=== PATIENT | female | born 1975 | race Caucasian/White ===

== ENCOUNTER 2022-08-06 08:09 | Emergency (ER) | payer BC, OTHER ==
[2022-08-06 08:40] VITALS: BP 136/85; PULSE 98; RESP 18; TEMP 98.5; BMI 36.6
[2022-08-06] MEDS ORDERED: predniSONE 20 MG TABLET (UD) PO ONE (09:24)
[2022-08-06] MEDS ORDERED: ALBUTEROL SO4 2.5/IPRATROPIUM 0.5 INH SOL 3 ML VIAL.NEB. NEB ONE ×2 (09:24→10:21)
== END 2022-08-06 11:45 | disposition home or self-care (01) ==
LOC: JER 08:09
PROC: 3E0F7GC Introduction of Other Therapeutic Substance into Respiratory Tract, Via Natural or Artificial Opening (ICD-10-PCS; principal; 2022-08-06)
DX: J45.909 Unspecified asthma, uncomplicated (principal); R05.9 Cough, unspecified
CPT/HCPCS: 0241U-QW; 99283-25

== ENCOUNTER 2022-09-20 14:47 | Day surgery (SDC) | payer BC, OTHER ==
[2022-09-20] MEDS ORDERED: FERRIC CARBOXYMALTOSE 750 MG in SODIUM CHLORIDE 250 ML IVPB ONE (15:30)
[2022-09-20 17:28] VITALS: BP 120/72; PULSE 64; RESP 17; TEMP 98.2
== END 2022-09-20 17:28 | disposition home or self-care (01) ==
LOC: FINFUSION 14:47 → FM/S 14:48 → FINFUSION 17:28
PROVIDERS: ATTEND Family Medicine
PROC: 3E033GC Introduction of Other Therapeutic Substance into Peripheral Vein, Percutaneous Approach (ICD-10-PCS; principal; 2022-09-20)
DX: D50.9 Iron deficiency anemia, unspecified (principal)
CPT/HCPCS: 96365; J1439

== ENCOUNTER 2022-09-28 10:46 | Day surgery (SDC) | payer BC, OTHER ==
[2022-09-28 11:07] VITALS: RESP 18; TEMP 98.2
[2022-09-28] MEDS ORDERED: FERRIC CARBOXYMALTOSE 750 MG in SODIUM CHLORIDE 250 ML IVPB SCH (11:15)
[2022-09-28 13:19] VITALS: BP 108/62; PULSE 84
== END 2022-09-28 13:22 | disposition home or self-care (01) ==
LOC: FINFUSION 10:46 → FM/S 10:50 → FINFUSION 13:22
PROVIDERS: ATTEND Family Medicine
PROC: 3E033GC Introduction of Other Therapeutic Substance into Peripheral Vein, Percutaneous Approach (ICD-10-PCS; principal; 2022-09-28)
DX: D50.9 Iron deficiency anemia, unspecified (principal)
CPT/HCPCS: 81025; 96365; J1439

== ENCOUNTER 2023-01-15 18:44 | Emergency (ER) | payer BC, OTHER ==
[2023-01-15 19:14] VITALS: RESP 18; BMI 36.3
[2023-01-15] MEDS ORDERED: ACETAMINOPHEN 1000 MG/100 ML BAG IVPB ONE (22:14)
[2023-01-15 22:17] LABS: BASO % 1.2 % (0-2.0); EOS % 1.7 % (0-4.5); HEMATOCRIT 38.5 % (32.4-45.2); HEMOGLOBIN 12.9 GM/dL (10.7-15.3); LYMPH % 45.6 % (8-40); MCH 32.6 pg (25.7-33.7); MCHC 33.6 g/dl (32.0-36.0); MEAN CELL VOLUME 97.1 fl (80-96); MEAN PLT VOLUME 11.3 fl (7.5-11.1); MONO % 6.7 % (3.8-10.2); NEUT % 44.8 % (42.8-82.8); PLATELET COUNT 202 10^3/uL (134-434); RBC 3.96 M/mm3 (3.60-5.2); WHITE BLOOD COUNT 5.9 K/mm3 (4.0-10.0)
[2023-01-15] MEDS ORDERED: ACETAMINOPHEN INJECTION 100 ML IVPB ONE (22:20)
[2023-01-15 22:36] LABS: CALCIUM 9.3 mg/dL (8.5-10.1)
[2023-01-15 22:40] LABS: CREATININE 0.7 mg/dL (0.55-1.3)
[2023-01-15 22:47] LABS: BLOOD UREA NITROGEN 15.9 mg/dL (7-18)
[2023-01-16 02:26] VITALS: BP 114/65; PULSE 76; TEMP 99
== END 2023-01-16 02:34 | disposition home or self-care (01) ==
LOC: JER 18:44
PROC: 3E033NZ Introduction of Analgesics, Hypnotics, Sedatives into Peripheral Vein, Percutaneous Approach (ICD-10-PCS; principal; 2023-01-15)
DX: M54.2 Cervicalgia (principal); R59.0 Localized enlarged lymph nodes
CPT/HCPCS: 36415; 70491-TC; 80048; 85025; 86308; 99285-25

== ENCOUNTER 2023-09-18 04:46 | Emergency (ER) | payer BC, OTHER ==
[2023-09-18 04:56] VITALS: BP 142/87; PULSE 100; RESP 26; TEMP 98.6; BMI 40.2
[2023-09-18] MEDS ORDERED: DEXAMETHASONE SOD PHOSPHATE 10 MG/1 ML VIAL IVPUSH ONE (05:05)
[2023-09-18] MEDS ORDERED: methylPREDNISolone NA SUCC 125 MG/2 ML VIAL IVPUSH ONE (05:07)
[2023-09-18] MEDS: ALBUTEROL SO4 2.5/IPRATROPIUM 0.5 INH SOL 3 ML VIAL.NEB. NEB SCH ×3 (05:07→05:51)
[2023-09-18] MEDS ORDERED: MAGNESIUM 1GM/D5W - 1 GM/100 ML IVPB IVPB ONE (05:21)
[2023-09-18] MEDS ORDERED: methylPREDNISolone NA SUCC 125 MG/2 ML VIAL ONE (05:21)
[2023-09-18 05:48] LABS: BASO % 0.5 % (0-2.0); EOS % 1.7 % (0-4.5); HEMATOCRIT 36.7 % (32.4-45.2); HEMOGLOBIN 12.1 GM/dL (10.7-15.3); LYMPH % 35.9 % (8-40); MCH 31.4 pg (25.7-33.7); MEAN CELL VOLUME 95.2 fl (80-96); MEAN PLT VOLUME 10.5 fl (7.5-11.1); MONO % 8.3 % (3.8-10.2); NEUT % 53.6 % (42.8-82.8); PLATELET COUNT 212 10^3/uL (134-434); RBC 3.85 M/mm3 (3.60-5.2); RDW 13.1 % (11.6-15.6); WHITE BLOOD COUNT 5.2 K/mm3 (4.0-10.0)
[2023-09-18 05:51] LABS: INR 0.95 (0.83-1.09)
[2023-09-18 05:53] LABS: ACTIVATED PTT 25.5 SECONDS (25.2-36.5)
[2023-09-18 06:06] LABS: POTASSIUM 3.8 mmol/L (3.5-5.1)
[2023-09-18 06:08] LABS: ALBUMIN 3.5 g/dl (3.4-5.0); CALCIUM 8.9 mg/dL (8.5-10.1)
[2023-09-18 06:09] LABS: BLOOD UREA NITROGEN 12.7 mg/dL (7-18)
[2023-09-18 06:11] LABS: CREATININE 0.7 mg/dL (0.55-1.3)
[2023-09-18 06:13] LABS: BILIRUBIN,TOTAL 0.2 mg/dL (0.2-1); TOT PROT 6.4 g/dl (6.4-8.2)
== END 2023-09-18 07:35 | disposition home or self-care (01) ==
LOC: JER 04:46
PROC: 3E033GC Introduction of Other Therapeutic Substance into Peripheral Vein, Percutaneous Approach (ICD-10-PCS; principal; 2023-09-18)
PROC: 3E033GC Introduction of Other Therapeutic Substance into Peripheral Vein, Percutaneous Approach (ICD-10-PCS; 2023-09-18)
PROC: 3E033GC Introduction of Other Therapeutic Substance into Peripheral Vein, Percutaneous Approach (ICD-10-PCS; 2023-09-18)
DX: R06.02 Shortness of breath (principal); J45.21 Mild intermittent asthma with (acute) exacerbation; M62.838 Other muscle spasm; R05.9 Cough, unspecified; Z20.822 Contact with and (suspected) exposure to COVID-19
CPT/HCPCS: 0241U-QW; 36415; 71045-TC-FY; 80053; 82550; 82553; 83735; 84484; 84703; 85025; 85610; 85730; 93005; 93010; 99285-25

== ENCOUNTER 2024-05-01 11:47 | Day surgery (SDC) | payer BC, OTHER ==
[2024-05-01] MEDS: FERRIC CARBOXYMALTOSE 750 MG in SODIUM CHLORIDE 250 ML IVPB SCH (12:29)
[2024-05-01 14:41] VITALS: BP 120/56; PULSE 75; RESP 18; TEMP 98.5
== END 2024-05-01 13:35 | disposition home or self-care (01) ==
LOC: FINFUSION 11:47 → FM/S 11:48 → FINFUSION 13:35
PROVIDERS: ATTEND Family Medicine
PROC: 3E033GC Introduction of Other Therapeutic Substance into Peripheral Vein, Percutaneous Approach (ICD-10-PCS; principal; 2024-05-01)
DX: D50.9 Iron deficiency anemia, unspecified (principal)
CPT/HCPCS: 96365; J1439

== ENCOUNTER 2024-05-08 11:51 | Day surgery (SDC) | payer BC, OTHER ==
[2024-05-08] MEDS: FERRIC CARBOXYMALTOSE 750 MG in SODIUM CHLORIDE 250 ML IVPB SCH (12:50)
[2024-05-08 13:35] VITALS: BP 112/57; PULSE 82; RESP 17; TEMP 98.6
== END 2024-05-08 13:36 | disposition home or self-care (01) ==
LOC: FINFUSION 11:51 → FM/S 11:51 → FINFUSION 13:36
PROVIDERS: ATTEND Family Medicine
PROC: 3E033GC Introduction of Other Therapeutic Substance into Peripheral Vein, Percutaneous Approach (ICD-10-PCS; principal; 2024-05-08)
DX: D50.9 Iron deficiency anemia, unspecified (principal)
CPT/HCPCS: 81025; 96365; J1439

== ENCOUNTER 2024-12-17 10:00 | Day surgery (SDC) | payer BC, OTHER ==
[2024-12-17] MEDS: IRON SUCROSE INJECTION 200 MG in SODIUM CHLORIDE 100 ML IVPB ONE (10:14)
[2024-12-17] MEDS: CYANOCOBALAMIN (VITAMIN B-12) 1000 MCG/1 ML VIAL IM ONE (10:15)
[2024-12-17 14:28] VITALS: RESP 16; TEMP 97.7
[2024-12-17 14:31] VITALS: BP 121/77; PULSE 83
== END 2024-12-17 11:15 | disposition home or self-care (01) ==
LOC: JONCCHEMO 10:00 → J7W 10:27 → JONCCHEMO 11:15
PROVIDERS: ATTEND Internal Medicine Hematology & Oncology
PROC: 3E033GC Introduction of Other Therapeutic Substance into Peripheral Vein, Percutaneous Approach (ICD-10-PCS; principal; 2024-12-17)
PROC: 3E023GC Introduction of Other Therapeutic Substance into Muscle, Percutaneous Approach (ICD-10-PCS; 2024-12-17)
DX: D64.9 Anemia, unspecified (principal); E61.1 Iron deficiency; D51.9 Vitamin B12 deficiency anemia, unspecified
CPT/HCPCS: 96365; 96372; J1756

== ENCOUNTER 2025-01-21 09:00 | Day surgery (SDC) | payer BC, OTHER ==
[2025-01-21 09:49] VITALS: RESP 18; TEMP 98.8
[2025-01-21] MEDS: IRON SUCROSE INJECTION 200 MG in SODIUM CHLORIDE 100 ML IVPB ONE (10:21)
[2025-01-21 11:09] VITALS: BP 106/56; PULSE 79
== END 2025-01-21 11:20 | disposition home or self-care (01) ==
LOC: JONCCHEMO 09:00 → J7W 09:00 → JONCCHEMO 11:20
PROVIDERS: ATTEND Internal Medicine Hematology & Oncology
PROC: 3E033GC Introduction of Other Therapeutic Substance into Peripheral Vein, Percutaneous Approach (ICD-10-PCS; principal; 2025-01-21)
DX: D50.9 Iron deficiency anemia, unspecified (principal)
CPT/HCPCS: 96365; J1756

== ENCOUNTER 2025-01-28 09:22 | Day surgery (SDC) | payer BC, OTHER ==
[2025-01-28] MEDS: IRON SUCROSE INJECTION 200 MG in SODIUM CHLORIDE 100 ML IVPB ONE (09:53)
[2025-01-28 14:24] VITALS: RESP 20; TEMP 98.2
[2025-01-28 14:32] VITALS: BP 113/82; PULSE 71
== END 2025-01-28 11:00 | disposition home or self-care (01) ==
LOC: JONCNONCHE 09:22
PROVIDERS: ATTEND Internal Medicine Hematology & Oncology
PROC: 3E033GC Introduction of Other Therapeutic Substance into Peripheral Vein, Percutaneous Approach (ICD-10-PCS; principal; 2025-01-28)
DX: E61.1 Iron deficiency (principal); D51.9 Vitamin B12 deficiency anemia, unspecified
CPT/HCPCS: 96365; J1756

== ENCOUNTER 2025-02-04 09:10 | Day surgery (SDC) | payer BC, OTHER ==
[2025-02-04] MEDS: IRON SUCROSE INJECTION 200 MG in SODIUM CHLORIDE 100 ML IVPB ONE (09:28)
[2025-02-04 13:59] VITALS: BP 101/56; PULSE 79; RESP 18; TEMP 97.7
== END 2025-02-04 10:20 | disposition home or self-care (01) ==
LOC: JONCNONCHE 09:10
PROVIDERS: ATTEND Internal Medicine Hematology & Oncology
PROC: 3E033GC Introduction of Other Therapeutic Substance into Peripheral Vein, Percutaneous Approach (ICD-10-PCS; principal; 2025-02-04)
DX: E61.1 Iron deficiency (principal)
CPT/HCPCS: 96365; J1756